=== PATIENT | male | born 1960 | race African-American/Black ===

== ENCOUNTER 2017-12-30 17:54 | Emergency (ER) | payer OTHER, MEDICAID ==
[~2017-12-30] VITALS: Ht 180.3 cm; Wt 77.1 kg
[~2017-12-30 17:54] MED LIST: ARTIFICIAL TEAR15 M7 BOTH EYES; ARTIFICIAL TEAR15 ML BOTH EYES; ATARAX50 MG ORAL; BENTYL20 M1 PO; CATAPRES0.1 MG ORAL; CYCLOBENZAPRINE10 MG ORAL; DIABETA2.5 MG ORAL; DIAZEPAM5 MG ORAL; DICYCLOMINE HCL10 MG PO; FOLIC ACID1 MG ORAL; GABAPENTIN300 MG ORAL; IBUPROFEN600 MG ORAL; IBUPROFEN800 MG ORAL; IMODIUM2 MG ORAL; JANUVIA100 MG ORAL; MAG-AL PLUS XS30 M1 PO; METFORMIN HCL1000 M1 ORAL; MILK OF MA400 MG/51 ORAL; MOM30 ML ORAL; MULTI VITAMIN1 EACH ORAL; MULTIVITAMINS1 EAC2 ORAL; MYLANTA30 M1 ORAL; MYLANTA30 M1 PO; NEURONTIN300 MG ORAL; NEXIUM40 MG ORAL; NOVOLOG100 UNIT/3 SUBQ; PROTONIX40 MG ORAL; RESTORIL15 MG ORAL; THIAMINE H100 MG/1 M PO; TIGAN300 MG ORAL; TYLENOL325 MG ORAL; TYLENOL650 MG/20. ORAL; VITAMIN B-1100 MG ORAL; ZOLOFT25 MG ORAL; ZYPREXA5 MG ORAL; ZYPREXA7.5 MG ORAL
[2017-12-30 18:00] VITALS: BP 108/87
--- NOTE | 2017-12-30 18:09 | Emergency Room Report ---
History of Present Illness General Chief Complaint: Generalized Weakness Source: Patient, EMS Present Illness HPI Patient's 57-year-old male who presents after increased generalized weakness. Patient reports feeling weak all over. Patient reports having recently used crystal meth. He states that this was approximately 3 days ago. He reports having increased generalized weakness as well as dizziness sensation. Patient reports being off of his psychiatric medications for several days. Previously been taking prostate 30 mg of Abilify. Allergies: Coded Allergies: No Known Allergies (Unverified , 10/03/13) Patient History Past Medical History: see triage record Reviewed Nursing Documentation: PMH: Agreed; PSxH: Agreed Nursing Documentation-PMH Hx Cardiac Problems: Yes Hx Hypertension: Yes Hx Diabetes: Yes Hx Cancer: No Hx Gastrointestinal Problems: No History Of Psychiatric Problem: Yes - schizo, bipolar, anxiety Hx Neurological Problems: Yes Hx Cerebrovascular Accident: No Hx Transient Ischemic Attacks: No Hx Dementia: No Hx Alzheimer's Disease: No Hx Parkinson's Disease: No Hx Meningitis: No Hx Encephalitis: No Hx Seizures: No Hx Epilepsy: No Hx Multiple Sclerosis: No Hx Cerebral Palsy: No Hx Weakness: Yes Hx Neurologic Surgery: No Hx Brain Shunt: No Review of Systems All Other Systems: negative except mentioned in HPI Physical Exam Vital Signs Date Time Temp Pulse Resp B/P (MAP) Pulse Ox O2 Delivery O2 Flow Rate FiO2 12/30/17 17:50 97.5 102 24 99/56 100 Room Air 97.5 Sp02 EP Interpretation: reviewed, normal General Appearance: normal inspection, well appearing, no apparent distress, alert, GCS 15 Head: atraumatic ENT: normal ENT inspection, hearing grossly normal, normal voice Neck: normal inspection, full range of motion, supple, no bony tend Respiratory: normal inspection, lungs clear, normal breath sounds, no respiratory distress, no retraction, no wheezing Cardiovascular #1: regular rate, rhythm, no edema Gastrointestinal: normal inspection, normal bowel sounds, non tender, soft, no guarding, no hernia Genitourinary: no CVA tenderness Musculoskeletal: normal inspection, back normal, normal range of motion Neurologic: normal inspection, alert, oriented x3, responsive, anthropometrist III-XII nml as tested, speech normal Psychiatric: normal inspection, judgement/insight normal, mood/affect normal Skin: normal inspection, normal color, no rash Medical Decision Making Diagnostic Impression: Primary Impression: Schizophrenia Additional Impression: Substance abuse ER Course Patient presented for generalized weakness. Differential diagnosis included was not limited to anemia, urinary tract infection, electrolyte abnormality, hypothyroidism, myocardial infarction, myasthenia gravis, dehydration, among others. Because of complexity of patient's case laboratory testing and imaging studies were ordered.Patient was given IV fluids urine drug screen was positive for amphetamine as well as cocaine. The patient improvement in symptoms after IV fluids. the patient was given refill of his medications for psychiatric disease. At the time of discharge patient is awake alert oriented and had good plan for self care. The patient denied any suicidal thoughts.The patient is advised follow-up with outpatient mental health and to avoid use of drugs. This report is dictated with [employer] corrosion control fitter software which may occasionally lead to discrepancies related to use of this software. Labs Test 12/30/17 18:18 White Blood Count 4.7 K/UL (4.8-10.8) Red Blood Count 4.75 M/UL (4.70-6.10) Hemoglobin 15.5 G/DL (14.2-18.0) Hematocrit 43.2 % (42.0-52.0) Mean Corpuscular Volume 91 FL (80-99) Mean Corpuscular Hemoglobin 32.5 PG (27.0-31.0) Mean Corpuscular Hemoglobin Concent 35.7 G/DL (32.0-36.0) Red Cell Distribution Width 11.1 % (11.6-14.8) Platelet Count 248 K/UL (150-450) Mean Platelet Volume 8.0 FL (6.5-10.1) Neutrophils (%) (Auto) 45.2 % (45.0-75.0) Lymphocytes (%) (Auto) 42.4 % (20.0-45.0) Monocytes (%) (Auto) 6.9 % (1.0-10.0) Eosinophils (%) (Auto) 3.6 % (0.0-3.0) Basophils (%) (Auto) 1.9 % (0.0-2.0) Sodium Level 137 MMOL/L (136-145) Potassium Level 4.5 MMOL/L (3.5-5.1) Chloride Level 100 MMOL/L (98-107) Carbon Dioxide Level 29 MMOL/L (21-32) Anion Gap 8 mmol/L (5-15) Blood Urea Nitrogen 15 mg/dL (7-18) Creatinine 1.5 MG/DL (0.55-1.30) Estimat Glomerular Filtration Rate 58.9 mL/min (>60) Glucose Level 247 MG/DL (74-106) Lactic Acid Level 1.50 mmol/L (0.4-2.0) Calcium Level 10.2 MG/DL (8.5-10.1) Total Bilirubin 0.8 MG/DL (0.2-1.0) Aspartate Amino Transf (AST/SGOT) 15 U/L (15-37) Alanine Aminotransferase (ALT/SGPT) 24 U/L (12-78) Alkaline Phosphatase 92 U/L (46-116) Total Creatine Kinase 254 U/L (26-308) Troponin I 0.000 ng/mL (0.000-0.056) Total Protein 8.5 G/DL (6.4-8.2) Albumin 4.3 G/DL (3.4-5.0) Globulin 4.2 g/dL Albumin/Globulin Ratio 1.0 (1.0-2.7) Thyroid Stimulating Hormone (TSH) 1.022 uiU/mL (0.358-3.740) Salicylates Level 4.0 ug/mL (2.8-20) Urine Opiates Screen Negative (NEGATIVE) Acetaminophen Level < 2 MCG/ML (10-30) Urine Barbiturates Screen Negative (NEGATIVE) Phencyclidine (PCP) Screen Negative (NEGATIVE) Urine Amphetamines Screen Positive (NEGATIVE) Urine Benzodiazepines Screen Negative (NEGATIVE) Urine Cocaine Screen Positive (NEGATIVE) Urine Marijuana (THC) Screen Negative (NEGATIVE) Serum Alcohol < 3 mg/dL Last Vital Signs Date Time Temp Pulse Resp B/P (MAP) Pulse Ox O2 Delivery O2 Flow Rate FiO2 12/30/17 17:50 97.5 102 24 99/56 100 Room Air 97.5 Status: improved Disposition: HOME, SELF-CARE Condition: Stable Scripts Aripiprazole* (ABILIFY*) 15 Mg Tablet 30 MG ORAL DAILY, #28 TAB 0 Refills Prov: Travis Rao MD 12/30/17 Olanzapine* (ZYPREXA*) 5 Mg Tablet 5 MG ORAL DAILY, #15 TAB Prov: Travis Rao MD 12/30/17 Travis Rao MD Dec 30, 2017 18:08
[2017-12-30 18:35] LABS: BASOPHILS % (AUTO) 1.9 % (0.0-2.0); EOSINOPHILS % (AUTO) 3.6 % (0.0-3.0); HEMATOCRIT 43.2 % (42.0-52.0); HEMOGLOBIN 15.5 G/DL (14.2-18.0); LYMPHOCYTES % (AUTO) 42.4 % (20.0-45.0); MEAN CORPUSCULAR VOLUME 91 FL (80-99); MONOCYTES % (AUTO) 6.9 % (1.0-10.0); NEUTROPHILS % (AUTO) 45.2 % (45.0-75.0); PLATELET COUNT 248 K/UL (150-450); RED BLOOD COUNT 4.75 M/UL (4.70-6.10); RED CELL DISTRIBUTION WIDTH 11.1 % (11.6-14.8); WHITE BLOOD COUNT 4.7 K/UL (4.8-10.8)
[2017-12-30 18:49] LABS: ANION GAP 8 mmol/L (5-15); BLOOD UREA NITROGEN 15 mg/dL (7-18); CALCIUM 10.2 MG/DL (8.5-10.1); CARBON DIOXIDE 29 MMOL/L (21-32); CHLORIDE 100 MMOL/L (98-107); CREATININE 1.5 MG/DL (0.55-1.30); POTASSIUM 4.5 MMOL/L (3.5-5.1); SODIUM 137 MMOL/L (136-145)
[2017-12-30 19:02] LABS: ALANINE AMINOTRANSFERASE 24 U/L (12-78); ALBUMIN 4.3 G/DL (3.4-5.0); ALKALINE PHOSPHATASE 92 U/L (46-116); ASPARTATE AMINO TRANSFERASE 15 U/L (15-37); BILIRUBIN,TOTAL 0.8 MG/DL (0.2-1.0); CREATINE KINASE 254 U/L (26-308)
[2017-12-30 19:23] VITALS: BP 102/75
[2017-12-30] MEDS ORDERED: ZYPREXA5 MG ORAL (19:37)
[2017-12-30] MEDS ORDERED: ABILIFY15 MG ORAL (19:40)
[2017-12-30 19:57] VITALS: BP 102/75
== END 2017-12-30 20:02 | disposition home or self-care (01) ==
LOC: EDBD 17:54 → EMR 19:30
DX: F20.9 Schizophrenia, unspecified (principal); F15.10 Other stimulant abuse, uncomplicated; F14.10 Cocaine abuse, uncomplicated; I10 Essential (primary) hypertension; E11.9 Type 2 diabetes mellitus without complications; R53.1 Weakness
CPT/HCPCS: 36415; 80053; 80307; 82550; 83605; 84443; 84484; 85025; 96360; 99284; G0480; 80329

== ENCOUNTER 2019-01-18 09:12 | Emergency (ER) | payer OTHER, MEDICAID ==
[~2019-01-18] VITALS: Ht 182.9 cm; Wt 75.7 kg
[~2019-01-18 09:12] MED LIST changes: +ABILIFY15 MG ORAL
[2019-01-18 09:15] VITALS: BP 132/67
--- NOTE | 2019-01-18 09:23 | NUR ---
Note sahra in EDM - 01/18/19 at 0935 by EZRA ED Nurse Note: PT FROM HOME CAME IN DUE TO POSSIBLE INSECT BITE ON BUTTOCK 2 DAYS AGO. AAO X4 AMBULATORY.
--- NOTE | 2019-01-18 09:25 | NUR ---
ED Nurse Note: PT WALKED IN DUE TO ABSCESS ON HIS BUTTOCK 1 WEEK. PT REPORTS FEVER AND CHILLS BUT UNABLE TO STATES TEMPERATURE. PSTATES IT MIGHT BE A POSSIBLE "SPIDER OR ANT BITE". AAO X4, AMBULATORY. NOTED WHITE DRAINAGE FROM ABSCES IN MODERATE AMOUNT.
[2019-01-18] MEDS ORDERED: Piperacillin/Tazobactam 3.375 GM in NS 110 ML IVPB ONE (09:30)
--- NOTE | 2019-01-18 09:34 | Emergency Room Report ---
History of Present Illness General Chief Complaint: Skin Rash/Abscess Source: Patient Present Illness HPI Patient 58-year-old male presents after increased pain to the buttock area. Patient reports having prior history of diabetes. He states that he had been having increased swelling and pain to the buttock for approximately 1 week. He thinks he may have bitten by an insect. He denies any prior similar episodes. He denies HIV. He is states that he does not take his blood sugar. Prior history of amphetamine abuse and psychosis. Allergies: Coded Allergies: No Known Allergies (Unverified , 10/03/13) Patient History Past Medical History: see triage record Reviewed Nursing Documentation: PMH: Agreed; PSxH: Agreed Nursing Documentation-PMH Past Medical History: No History, Except For Hx Cardiac Problems: Yes Hx Hypertension: Yes Hx Diabetes: Yes Hx Cancer: No Hx Gastrointestinal Problems: No Hx Neurological Problems: Yes Hx Cerebrovascular Accident: No Hx Transient Ischemic Attacks: No Hx Dementia: No Hx Alzheimer's Disease: No Hx Parkinson's Disease: No Hx Meningitis: No Hx Encephalitis: No Hx Seizures: No Hx Epilepsy: No Hx Multiple Sclerosis: No Hx Cerebral Palsy: No Hx Weakness: Yes Hx Neurologic Surgery: No Hx Brain Shunt: No Review of Systems All Other Systems: limited Physical Exam Vital Signs Date Time Temp Pulse Resp B/P (MAP) Pulse Ox O2 Delivery O2 Flow Rate FiO2 01/18/19 09:15 97.2 65 16 132/67 98 Room Air Sp02 EP Interpretation: reviewed, normal General Appearance: normal inspection, alert, thin, Chronically Ill Head: atraumatic ENT: normal ENT inspection, hearing grossly normal, normal voice Neck: supple/symm/no masses Respiratory: normal inspection, lungs clear, normal breath sounds, no respiratory distress, no retraction, no wheezing Cardiovascular #1: regular rate, rhythm, no edema Gastrointestinal: normal inspection, normal bowel sounds, non tender, soft, no guarding, no hernia Genitourinary: no CVA tenderness Musculoskeletal: normal inspection, back normal, normal range of motion Neurologic: normal inspection, alert, oriented x3, responsive, technical support agent III-XII nml as tested, speech normal Psychiatric: normal inspection, judgement/insight normal, mood/affect normal Skin: other - moderate size buttock abscess right side with some spontaneous drainage Medical Decision Making Diagnostic Impression: Primary Impression: Diabetes mellitus out of control Additional Impression: Abscess of right buttock ER Course Patient presented for right buttock pain. Differential diagnosis include was not limited to abscess, pilonidal cyst, necrotizing fasciitis, cellulitis, among others. Because of complexity of patient's case laboratory tests and imaging studies were ordered. Patient appears to have a spontaneously draining abscess to his right buttock. Blood sugar was noted to be elevated and patient was given IV insulin. He was started on IV antibiotics empirically. Patient's BUN/creatinine was noted to be normal. He was not acidotic. [facility]'s [facility] for [facility]. Patient is currenty stable for transfer for management of abscess. Labs Test 01/18/19 09:59 White Blood Count 15.0 K/UL (4.8-10.8) Red Blood Count 4.51 M/UL (4.70-6.10) Hemoglobin 13.7 G/DL (14.2-18.0) Hematocrit 41.0 % (42.0-52.0) Mean Corpuscular Volume 91 FL (80-99) Mean Corpuscular Hemoglobin 30.3 PG (27.0-31.0) Mean Corpuscular Hemoglobin Concent 33.3 G/DL (32.0-36.0) Red Cell Distribution Width 10.8 % (11.6-14.8) Platelet Count 232 K/UL (150-450) Mean Platelet Volume 7.0 FL (6.5-10.1) Neutrophils (%) (Auto) 83.5 % (45.0-75.0) Lymphocytes (%) (Auto) 8.4 % (20.0-45.0) Monocytes (%) (Auto) 6.0 % (1.0-10.0) Eosinophils (%) (Auto) 1.1 % (0.0-3.0) Basophils (%) (Auto) 0.9 % (0.0-2.0) Sodium Level 132 MMOL/L (136-145) Potassium Level 4.2 MMOL/L (3.5-5.1) Chloride Level 96 MMOL/L (98-107) Carbon Dioxide Level 29 MMOL/L (21-32) Anion Gap 7 mmol/L (5-15) Blood Urea Nitrogen 9 mg/dL (7-18) Creatinine 1.1 MG/DL (0.55-1.30) Estimat Glomerular Filtration Rate > 60 mL/min (>60) Glucose Level 387 MG/DL (74-106) Calcium Level 9.4 MG/DL (8.5-10.1) EKG Diagnostic Results Rate: normal - 78 Rhythm: NSR ST Segments: no acute changes Last Vital Signs Date Time Temp Pulse Resp B/P (MAP) Pulse Ox O2 Delivery O2 Flow Rate FiO2 01/18/19 09:15 97.2 65 16 132/67 (88) 98 Room Air Status: improved Disposition: [facility] Condition: Stable Travis Rao MD Jan 18, 2019 09:34
--- NOTE | 2019-01-18 09:42 | NUR ---
HAND-OFF: Report given to ANNA STAPLETON.
[2019-01-18] MEDS ORDERED: Omnipaque-300 100ml vial INJ PRN (09:45)
--- NOTE | 2019-01-18 10:16 | NUR ---
ED Nurse Note: blood and cultures and abscess swab sent to lab
[2019-01-18 10:21] LABS: BASOPHILS % (AUTO) 0.9 % (0.0-2.0); EOSINOPHILS % (AUTO) 1.1 % (0.0-3.0); HEMOGLOBIN 13.7 G/DL (14.2-18.0); LYMPHOCYTES % (AUTO) 8.4 % (20.0-45.0); MEAN CORPUSCULAR VOLUME 91 FL (80-99); NEUTROPHILS % (AUTO) 83.5 % (45.0-75.0); PLATELET COUNT 232 K/UL (150-450); RED BLOOD COUNT 4.51 M/UL (4.70-6.10); RED CELL DISTRIBUTION WIDTH 10.8 % (11.6-14.8)
[2019-01-18 10:23] LABS: ANION GAP 7 mmol/L (5-15); BLOOD UREA NITROGEN 9 mg/dL (7-18); CALCIUM 9.4 MG/DL (8.5-10.1); CARBON DIOXIDE 29 MMOL/L (21-32); CHLORIDE 96 MMOL/L (98-107); CREATININE 1.1 MG/DL (0.55-1.30); POTASSIUM 4.2 MMOL/L (3.5-5.1); SODIUM 132 MMOL/L (136-145)
[2019-01-18 10:26] LABS: INR 0.9 (0.9-1.1)
[2019-01-18 10:28] LABS: ALANINE AMINOTRANSFERASE 37 U/L (12-78); ALBUMIN 3.3 G/DL (3.4-5.0); ALBUMIN/GLOBULIN RATIO 0.6 (1.0-2.7); ALKALINE PHOSPHATASE 94 U/L (46-116); ASPARTATE AMINO TRANSFERASE 31 U/L (15-37); BILIRUBIN,TOTAL 0.9 MG/DL (0.2-1.0)
[2019-01-18] MEDS ORDERED: Insulin Human Regular 100units/ml 3ml IV ONE (10:30)
[2019-01-18 11:48] VITALS: BP 116/76
[2019-01-18 13:21] VITALS: BP 111/96
--- NOTE | 2019-01-18 13:22 | NUR ---
ED Nurse Note: report called to [facility] . Report given to Lalita STAPLETON . Pt being picked up now via [facility] [id number].
[2019-01-18 13:26] VITALS: BP 111/96
--- NOTE | 2019-01-20 15:23 | Cardiology Report ---
APPROVED REPORT EKG Measurement Heart [id number] Normal sinus rhythm Right atrial enlargement Moderate voltage criteria for LVH, may be normal variant Borderline ECG
== END 2019-01-18 13:28 | disposition short-term general hospital (02) ==
LOC: EMR 09:39
DX: L02.31 Cutaneous abscess of buttock (principal); I10 Essential (primary) hypertension; E11.65 Type 2 diabetes mellitus with hyperglycemia
CPT/HCPCS: 36415; 80053; 82962; 83605; 85025; 85610; 85730; 86850; 86900; 86901; 87040; 93005; 96365; 96375; 99284; J1815; J2543